=== PATIENT | male | born 1955 | race Hispanic/Latino ===

== ENCOUNTER 2020-02-22 18:27 | Inpatient (IN) | payer MEDICARE ==
[~2020-02-22] VITALS: Ht 170.2 cm; Wt 92.1 kg
[~2020-02-22 18:27] MED LIST: AMLODIPINE BESY10 MG PO; GABAPENTIN400 MG PO; LANTUS 3ML100 UNITS/ SC; LANTUS 3ML100 UNITS/ SQ; LOSARTAN POTAS100 MG PO; METOPROLOL SUCC50 MG PO
[2020-02-22] MEDS ORDERED: HYDRALAZINE HCL 20 MG/ML VIAL IV STA ×2 (19:51→21:12)
[2020-02-22] MEDS ORDERED: ASPIRIN 81 MG CHEW TAB PO ONE (20:15)
[2020-02-22] MEDS ORDERED: HYDRALAZINE HCL 20 MG/ML VIAL ONE ×2 (20:28→22:06)
[2020-02-22] MEDS ORDERED: ASPIRIN 81 MG CHEW TAB ONE (20:28)
[2020-02-22 22:20] VITALS: BP 150/77
[2020-02-23] VITALS (10 sets, daily range): BP systolic 152–187; BP diastolic 85–105
[2020-02-23] MEDS: HYDRALAZINE HCL 20 MG/ML VIAL IV PRN ×2 (05:49→23:44)
[2020-02-23] MEDS: LOSARTAN POTASSIUM 100 MG TAB PO SCH (09:09)
[2020-02-23] MEDS: GABAPENTIN 400 MG CAP PO SCH ×3 (09:10→22:39)
[2020-02-23] MEDS: AMLODIPINE BESYLATE 10 MG TAB PO SCH (09:10)
[2020-02-23] MEDS: METOPROLOL SUCCINATE 50 MG TAB XL PO SCH (09:10)
[2020-02-23 12:38] LABS: BASOPHILS % 0.3 % (0.0-1.0); EOSINOPHILS # (AUTO) 0.1 (0.0-0.4); EOSINOPHILS % 0.9 % (0.0-6.0); HEMATOCRIT 27.9 % (38.2-49.6); LYMPHOCYTES % 10.8 % (18.0-39.1); MEAN CORPUSCULAR HEMOGLOBIN 26.5 pg (28-32); MEAN CORPUSCULAR HGB CONC 35.8 g/dL (31-35); MEAN CORPUSCULAR VOLUME 73.8 fL (81-99); MONOCYTES % 11.2 % (4.4-11.3); NEUTROPHILS # (AUTO) 6.8 (2.1-6.9); NEUTROPHILS % 76.5 % (38.7-80.0); PLATELET COUNT 315 x10e3/uL (140-360); RED BLOOD COUNT 3.78 x10e6/uL (4.3-5.7); RED CELL DISTRIBUTION WIDTH 13.7 % (11.7-14.4)
[2020-02-23 13:00] LABS: ALBUMIN 3.8 g/dL (3.5-5.0); ALBUMIN/GLOBULIN RATIO 1.2 (0.8-2.0); ANION GAP 17.4 mmol/L (8-16); CALCIUM 8.7 mg/dL (8.4-10.2); CREATININE, SERUM 2.42 mg/dL (0.72-1.25); POTASSIUM 3.4 mmol/L (3.5-5.1)
[2020-02-23 13:06] LABS: CREATINE KINASE MB 11.2 ng/mL (0-5.0)
[2020-02-23 18:05] LABS: CREATINE KINASE MB 11.7 ng/mL (0-5.0)
[2020-02-23] MEDS ORDERED: SODIUM CHLORIDE 3% 100 ML IV ONE (18:15)
[2020-02-23] MEDS ORDERED: POTASSIUM CHLORIDE 20 MEQ TAB CR PO ONE ×2 (18:15→22:34)
[2020-02-23 23:14] LABS: POTASSIUM,URINE 22.9 mmol/L
[2020-02-24] VITALS (15 sets, daily range): BP systolic 93–174; BP diastolic 45–85
[2020-02-24 01:50] LABS: CREATINE KINASE MB 10.7 ng/mL (0-5.0)
[2020-02-24] MEDS ORDERED: SODIUM CHLORIDE 0.9% 1000ML 1,000 ML ONE (03:24)
[2020-02-24 03:27] LABS: ANION GAP 15.6 mmol/L (8-16); CREATININE, SERUM 2.48 mg/dL (0.72-1.25); POTASSIUM 3.6 mmol/L (3.5-5.1)
[2020-02-24 05:51] LABS: BASOPHILS % 0.3 % (0.0-1.0); EOSINOPHILS # (AUTO) 0.1 (0.0-0.4); HEMOGLOBIN 8.9 g/dL (14.0-18.0); LYMPHOCYTES # (AUTO) 1.1 (1.0-3.2); MEAN CORPUSCULAR HEMOGLOBIN 27.6 pg (28-32); MEAN CORPUSCULAR HGB CONC 37.1 g/dL (31-35); MEAN CORPUSCULAR VOLUME 74.5 fL (81-99); MONOCYTES # (AUTO) 1.2 (0.2-0.8); MONOCYTES % 9.6 % (4.4-11.3); NEUTROPHILS # (AUTO) 9.7 (2.1-6.9); NEUTROPHILS % 79.7 % (38.7-80.0); PLATELET COUNT 269 x10e3/uL (140-360); RED BLOOD COUNT 3.22 x10e6/uL (4.3-5.7); RED CELL DISTRIBUTION WIDTH 13.6 % (11.7-14.4)
[2020-02-24 06:14] LABS: ALBUMIN 3.2 g/dL (3.5-5.0); ALBUMIN/GLOBULIN RATIO 1.2 (0.8-2.0); ANION GAP 14.5 mmol/L (8-16); CREATININE, SERUM 2.41 mg/dL (0.72-1.25); MAGNESIUM 1.7 MG/DL (1.3-2.1); POTASSIUM 3.5 mmol/L (3.5-5.1)
[2020-02-24 07:02] LABS: CREATINE KINASE MB 8.6 ng/mL (0-5.0)
[2020-02-24] MEDS: GABAPENTIN 400 MG CAP PO SCH (08:40)
[2020-02-24] MEDS: ASPIRIN 81 MG CHEW TAB PO SCH (08:40)
[2020-02-24] MEDS: METOPROLOL SUCCINATE 50 MG TAB XL PO SCH (08:41)
[2020-02-24] MEDS ORDERED: SODIUM CHLORIDE 1 GM TAB PO SCH (09:00)
[2020-02-24] MEDS: LOSARTAN POTASSIUM 100 MG TAB PO SCH (10:16)
[2020-02-24] MEDS: AMLODIPINE BESYLATE 10 MG TAB PO SCH (11:46)
[2020-02-24] MEDS ORDERED: POTASSIUM CHLORIDE 20 MEQ TAB CR PO ONE (12:30)
[2020-02-24 12:50] LABS: FREE THYROXINE INDEX 2.5431 (1.4-3.8); THYROID STIMULATING HORMONE 0.205 uIU/mL (0.350-4.940)
[2020-02-24] MEDS: SODIUM CHLORIDE 0.9% 1000ML 1,000 ML IV SCH ×2 (14:45→20:47)
[2020-02-24] MEDS: SODIUM CHLORIDE 1 GM TAB PO SCH ×2 (14:46→20:47)
[2020-02-24 16:32] LABS: ANION GAP 14.8 mmol/L (8-16); CREATININE, SERUM 2.46 mg/dL (0.72-1.25); POTASSIUM 3.8 mmol/L (3.5-5.1)
[2020-02-24] MEDS: HYDRALAZINE HCL 20 MG/ML VIAL IV PRN (18:21)
[2020-02-25] VITALS (8 sets, daily range): BP systolic 119–197; BP diastolic 66–89
[2020-02-25 06:14] LABS: BASOPHILS % 0.6 % (0.0-1.0); EOSINOPHILS # (AUTO) 0.2 (0.0-0.4); EOSINOPHILS % 2.2 % (0.0-6.0); HEMATOCRIT 24.4 % (38.2-49.6); HEMOGLOBIN 8.6 g/dL (14.0-18.0); LYMPHOCYTES # (AUTO) 1.1 (1.0-3.2); LYMPHOCYTES % 15.5 % (18.0-39.1); MEAN CORPUSCULAR HEMOGLOBIN 27.2 pg (28-32); MEAN CORPUSCULAR HGB CONC 35.2 g/dL (31-35); MEAN CORPUSCULAR VOLUME 77.2 fL (81-99); MONOCYTES # (AUTO) 0.9 (0.2-0.8); NEUTROPHILS # (AUTO) 4.7 (2.1-6.9); NEUTROPHILS % 68.4 % (38.7-80.0); PLATELET COUNT 274 x10e3/uL (140-360); RED BLOOD COUNT 3.16 x10e6/uL (4.3-5.7); RED CELL DISTRIBUTION WIDTH 13.9 % (11.7-14.4)
[2020-02-25 07:06] LABS: ALBUMIN/GLOBULIN RATIO 1.1 (0.8-2.0); ANION GAP 9.8 mmol/L (8-16); CALCIUM 7.8 mg/dL (8.4-10.2); CREATININE, SERUM 2.44 mg/dL (0.72-1.25); MAGNESIUM 1.7 MG/DL (1.3-2.1); POTASSIUM 3.8 mmol/L (3.5-5.1)
[2020-02-25] MEDS ORDERED: DEXTROSE 50% SYRINGE 50 ML IV PRN (07:45)
[2020-02-25] MEDS: SODIUM CHLORIDE 1 GM TAB PO SCH ×3 (08:08→20:34)
[2020-02-25] MEDS: AMLODIPINE BESYLATE 10 MG TAB PO SCH (08:08)
[2020-02-25] MEDS: ASPIRIN 81 MG CHEW TAB PO SCH (08:08)
[2020-02-25] MEDS: METOPROLOL SUCCINATE 50 MG TAB XL PO SCH (08:09)
[2020-02-25] MEDS: SODIUM CHLORIDE 0.9% 1000ML 1,000 ML IV SCH ×2 (10:45→18:15)
[2020-02-25] MEDS: INSULIN REGULAR, HUMAN 100 UNIT/1 ML 3ML VIAL SQ SCH ×3 (12:13→21:00)
[2020-02-25] MEDS: TRAMADOL HCL 50 MG TAB PO PRN (16:55)
[2020-02-25] MEDS: INSULIN GLARGINE 100 UNITS/ML VIAL SQ SCH (21:00)
[2020-02-25] MEDS: HYDRALAZINE HCL 20 MG/ML VIAL IV PRN (21:06)
[2020-02-26] VITALS (8 sets, daily range): BP systolic 166–185; BP diastolic 80–113
[2020-02-26] MEDS: HYDRALAZINE HCL 20 MG/ML VIAL IV PRN (02:00)
[2020-02-26] MEDS: SODIUM CHLORIDE 0.9% 1000ML 1,000 ML IV SCH (04:15)
[2020-02-26 06:17] LABS: BASOPHILS # (AUTO) 0.1 (0.0-0.1); BASOPHILS % 0.8 % (0.0-1.0); EOSINOPHILS # (AUTO) 0.2 (0.0-0.4); EOSINOPHILS % 2.1 % (0.0-6.0); HEMATOCRIT 24.1 % (38.2-49.6); HEMOGLOBIN 8.4 g/dL (14.0-18.0); LYMPHOCYTES % 10.9 % (18.0-39.1); MEAN CORPUSCULAR HEMOGLOBIN 26.8 pg (28-32); MEAN CORPUSCULAR HGB CONC 34.9 g/dL (31-35); MONOCYTES % 10.5 % (4.4-11.3); NEUTROPHILS # (AUTO) 6.9 (2.1-6.9); NEUTROPHILS % 75.3 % (38.7-80.0); PLATELET COUNT 285 x10e3/uL (140-360); RED BLOOD COUNT 3.13 x10e6/uL (4.3-5.7); RED CELL DISTRIBUTION WIDTH 14.4 % (11.7-14.4)
[2020-02-26 06:42] LABS: ALBUMIN 3.3 g/dL (3.5-5.0); ALBUMIN/GLOBULIN RATIO 1.2 (0.8-2.0); ANION GAP 13.7 mmol/L (8-16); CALCIUM 7.9 mg/dL (8.4-10.2); CREATININE, SERUM 2.14 mg/dL (0.72-1.25); MAGNESIUM 1.6 MG/DL (1.3-2.1); POTASSIUM 3.7 mmol/L (3.5-5.1)
[2020-02-26] MEDS: INSULIN REGULAR, HUMAN 100 UNIT/1 ML 3ML VIAL SQ SCH ×4 (07:30→20:36)
[2020-02-26] MEDS: ASPIRIN 81 MG CHEW TAB PO SCH (08:24)
[2020-02-26] MEDS: METOPROLOL SUCCINATE 50 MG TAB XL PO SCH (08:25)
[2020-02-26] MEDS: AMLODIPINE BESYLATE 10 MG TAB PO SCH (08:25)
[2020-02-26] MEDS: SODIUM CHLORIDE 1 GM TAB PO SCH (09:36)
[2020-02-26] MEDS: NIFEDIPINE CR 30 MG TAB PO SCH ×2 (13:52→20:30)
[2020-02-26] MEDS: SODIUM BICARBONATE 650 MG TAB PO SCH ×2 (17:10→20:30)
[2020-02-26] MEDS: TRAMADOL HCL 50 MG TAB PO PRN (20:01)
[2020-02-26] MEDS: INSULIN GLARGINE 100 UNITS/ML VIAL SQ SCH (20:37)
[2020-02-27] VITALS (8 sets, daily range): BP systolic 147–160; BP diastolic 70–104
[2020-02-27] MEDS: TRAMADOL HCL 50 MG TAB PO PRN ×2 (04:25→21:03)
[2020-02-27 05:45] LABS: ALBUMIN 3.2 g/dL (3.5-5.0); ALBUMIN/GLOBULIN RATIO 1.1 (0.8-2.0); ANION GAP 13.6 mmol/L (8-16); CALCIUM 8.1 mg/dL (8.4-10.2); CREATININE, SERUM 2.13 mg/dL (0.72-1.25); POTASSIUM 3.6 mmol/L (3.5-5.1)
[2020-02-27] MEDS: INSULIN REGULAR, HUMAN 100 UNIT/1 ML 3ML VIAL SQ SCH ×4 (07:30→21:13)
[2020-02-27] MEDS: NIFEDIPINE CR 30 MG TAB PO SCH ×2 (10:14→21:04)
[2020-02-27] MEDS: SODIUM BICARBONATE 650 MG TAB PO SCH ×3 (10:14→21:04)
[2020-02-27] MEDS: ASPIRIN 81 MG CHEW TAB PO SCH (10:14)
[2020-02-27] MEDS: METOPROLOL SUCCINATE 50 MG TAB XL PO SCH (10:14)
[2020-02-27] MEDS: INSULIN GLARGINE 100 UNITS/ML VIAL SQ SCH (21:12)
[2020-02-28] VITALS (7 sets, daily range): BP systolic 140–166; BP diastolic 67–81
[2020-02-28 06:02] LABS: ANION GAP 11.7 mmol/L (8-16); CALCIUM 7.9 mg/dL (8.4-10.2); CREATININE, SERUM 2.04 mg/dL (0.72-1.25); PHOSPHORUS 3.5 MG/DL (2.3-4.7); POTASSIUM 3.7 mmol/L (3.5-5.1)
[2020-02-28 06:11] LABS: CLARITY,URINE CLEAR (CLEAR); COLOR,URINE YELLOW (YELLOW); LEUKOCYTE ESTERASE ,URINE NEGATIVE (NEGATIVE); NITRITE,URINE NEGATIVE (NEGATIVE); PROTEIN,URINE DIPSTICK >=300 (NEGATIVE)
[2020-02-28 06:12] LABS: KETONES,URINE NEGATIVE (NEGATIVE); URINE UROBILINOGEN 0.2 mg/dL (0.2 - 1)
[2020-02-28 07:05] LABS: BACTERIA,URINE FEW /HPF; EPITHELIAL CELLS,URINE RARE /LPF; WBC,URINE (MAN) 0-5 /HPF (0-5)
[2020-02-28] MEDS: SODIUM BICARBONATE 650 MG TAB PO SCH ×3 (07:51→21:26)
[2020-02-28] MEDS: SODIUM CHLORIDE 1 GM TAB PO SCH ×3 (07:51→21:26)
[2020-02-28] MEDS: INSULIN REGULAR, HUMAN 100 UNIT/1 ML 3ML VIAL SQ SCH ×4 (08:30→21:33)
[2020-02-28] MEDS: ASPIRIN 81 MG CHEW TAB PO SCH (08:41)
[2020-02-28] MEDS: FUROSEMIDE 20 MG TAB PO SCH (08:41)
[2020-02-28] MEDS: NIFEDIPINE CR 30 MG TAB PO SCH ×2 (08:41→21:23)
[2020-02-28] MEDS: METOPROLOL SUCCINATE 50 MG TAB XL PO SCH (08:42)
[2020-02-28 08:44] LABS: CREATININE,URINE RANDOM 57.44 mg/dL (63-166)
[2020-02-28] MEDS: DOCUSATE SODIUM 100 MG CAP PO SCH ×2 (09:59→16:47)
[2020-02-28] MEDS: TRAMADOL HCL 50 MG TAB PO PRN (15:01)
[2020-02-28] MEDS: INSULIN GLARGINE 100 UNITS/ML VIAL SQ SCH (21:34)
[2020-02-29] VITALS (10 sets, daily range): BP systolic 123–178; BP diastolic 75–87
[2020-02-29 06:23] LABS: BASOPHILS % 0.3 % (0.0-1.0); EOSINOPHILS % 9.2 % (0.0-6.0); HEMATOCRIT 26.9 % (38.2-49.6); HEMOGLOBIN 9.6 g/dL (14.0-18.0); LYMPHOCYTES # (AUTO) 1.1 (1.0-3.2); LYMPHOCYTES % 10.7 % (18.0-39.1); MEAN CORPUSCULAR HEMOGLOBIN 27.4 pg (28-32); MEAN CORPUSCULAR HGB CONC 35.7 g/dL (31-35); MEAN CORPUSCULAR VOLUME 76.9 fL (81-99); MONOCYTES # (AUTO) 1.1 (0.2-0.8); MONOCYTES % 10.7 % (4.4-11.3); NEUTROPHILS % 68.4 % (38.7-80.0); PLATELET COUNT 316 x10e3/uL (140-360); RED CELL DISTRIBUTION WIDTH 13.6 % (11.7-14.4)
[2020-02-29 07:00] LABS: ANION GAP 11.5 mmol/L (8-16); CALCIUM 7.8 mg/dL (8.4-10.2); CREATININE, SERUM 2.01 mg/dL (0.72-1.25); POTASSIUM 3.5 mmol/L (3.5-5.1)
[2020-02-29] MEDS: INSULIN REGULAR, HUMAN 100 UNIT/1 ML 3ML VIAL SQ SCH ×4 (07:30→20:59)
[2020-02-29] MEDS ORDERED: POTASSIUM CHLORIDE 20 MEQ TAB CR PO STA (08:41)
[2020-02-29] MEDS: DOCUSATE SODIUM 100 MG CAP PO SCH ×2 (09:10→16:30)
[2020-02-29] MEDS: NIFEDIPINE CR 30 MG TAB PO SCH ×2 (09:10→21:07)
[2020-02-29] MEDS: FUROSEMIDE 20 MG TAB PO SCH (09:10)
[2020-02-29] MEDS: ASPIRIN 81 MG CHEW TAB PO SCH (09:10)
[2020-02-29] MEDS: METOPROLOL SUCCINATE 50 MG TAB XL PO SCH (09:11)
[2020-02-29] MEDS: SODIUM BICARBONATE 650 MG TAB PO SCH ×3 (09:11→21:07)
[2020-02-29] MEDS: SODIUM CHLORIDE 1 GM TAB PO SCH ×3 (09:11→21:07)
[2020-02-29] MEDS: HYDRALAZINE HCL 25 MG TAB PO SCH ×2 (12:48→21:06)
[2020-02-29] MEDS: TRAMADOL HCL 50 MG TAB PO PRN (16:31)
[2020-02-29] MEDS: INSULIN GLARGINE 100 UNITS/ML VIAL SQ SCH (20:59)
[2020-03-01] VITALS (7 sets, daily range): BP systolic 139–186; BP diastolic 67–84
[2020-03-01 06:45] LABS: ALBUMIN 2.9 g/dL (3.5-5.0); ALBUMIN/GLOBULIN RATIO 1.1 (0.8-2.0); ANION GAP 11.7 mmol/L (8-16); CALCIUM 7.8 mg/dL (8.4-10.2); CREATININE, SERUM 2.13 mg/dL (0.72-1.25); MAGNESIUM 1.7 MG/DL (1.3-2.1); PHOSPHORUS 3.4 MG/DL (2.3-4.7); POTASSIUM 3.7 mmol/L (3.5-5.1)
[2020-03-01] MEDS: INSULIN REGULAR, HUMAN 100 UNIT/1 ML 3ML VIAL SQ SCH ×4 (07:30→21:00)
[2020-03-01] MEDS: HYDRALAZINE HCL 25 MG TAB PO SCH ×3 (10:09→21:18)
[2020-03-01] MEDS: ASPIRIN 81 MG CHEW TAB PO SCH (10:10)
[2020-03-01] MEDS: NIFEDIPINE CR 30 MG TAB PO SCH ×2 (10:10→21:19)
[2020-03-01] MEDS: DOCUSATE SODIUM 100 MG CAP PO SCH ×2 (10:10→18:05)
[2020-03-01] MEDS: FUROSEMIDE 20 MG TAB PO SCH (10:10)
[2020-03-01] MEDS: SODIUM CHLORIDE 1 GM TAB PO SCH ×3 (10:11→21:19)
[2020-03-01] MEDS: SODIUM BICARBONATE 650 MG TAB PO SCH ×3 (10:11→21:19)
[2020-03-01] MEDS: METOPROLOL SUCCINATE 50 MG TAB XL PO SCH (10:12)
[2020-03-01] MEDS: INSULIN GLARGINE 100 UNITS/ML VIAL SQ SCH (21:00)
[2020-03-02] VITALS (8 sets, daily range): BP systolic 147–185; BP diastolic 70–86
[2020-03-02] MEDS: TRAMADOL HCL 50 MG TAB PO PRN ×2 (00:02→21:47)
[2020-03-02 06:22] LABS: BASOPHILS % 0.1 % (0.0-1.0); EOSINOPHILS # (AUTO) 0.9 (0.0-0.4); EOSINOPHILS % 12.3 % (0.0-6.0); HEMATOCRIT 24.2 % (38.2-49.6); HEMOGLOBIN 8.3 g/dL (14.0-18.0); LYMPHOCYTES # (AUTO) 0.7 (1.0-3.2); LYMPHOCYTES % 9.7 % (18.0-39.1); MEAN CORPUSCULAR HEMOGLOBIN 27.1 pg (28-32); MEAN CORPUSCULAR HGB CONC 34.3 g/dL (31-35); MEAN CORPUSCULAR VOLUME 79.1 fL (81-99); MONOCYTES % 13.2 % (4.4-11.3); NEUTROPHILS # (AUTO) 4.9 (2.1-6.9); NEUTROPHILS % 63.8 % (38.7-80.0); PLATELET COUNT 253 x10e3/uL (140-360); RED BLOOD COUNT 3.06 x10e6/uL (4.3-5.7); RED CELL DISTRIBUTION WIDTH 14.2 % (11.7-14.4)
[2020-03-02 06:26] LABS: ANION GAP 11.5 mmol/L (8-16); CALCIUM 7.6 mg/dL (8.4-10.2); CREATININE, SERUM 2.15 mg/dL (0.72-1.25); POTASSIUM 3.5 mmol/L (3.5-5.1)
[2020-03-02] MEDS: INSULIN REGULAR, HUMAN 100 UNIT/1 ML 3ML VIAL SQ SCH ×4 (07:30→21:00)
[2020-03-02] MEDS: ASPIRIN 81 MG CHEW TAB PO SCH (08:56)
[2020-03-02] MEDS: DOCUSATE SODIUM 100 MG CAP PO SCH ×2 (08:57→15:13)
[2020-03-02] MEDS: HYDRALAZINE HCL 100 MG TABLET PO SCH ×3 (08:57→21:39)
[2020-03-02] MEDS: FUROSEMIDE 20 MG TAB PO SCH (08:57)
[2020-03-02] MEDS: SODIUM BICARBONATE 650 MG TAB PO SCH ×3 (08:58→21:38)
[2020-03-02] MEDS: SODIUM CHLORIDE 1 GM TAB PO SCH ×3 (08:58→21:38)
[2020-03-02] MEDS: METOPROLOL SUCCINATE 50 MG TAB XL PO SCH (08:58)
[2020-03-02] MEDS: NIFEDIPINE CR 30 MG TAB PO SCH ×2 (08:58→21:39)
[2020-03-02] MEDS: INSULIN GLARGINE 100 UNITS/ML VIAL SQ SCH (21:00)
[2020-03-03] VITALS (9 sets, daily range): BP systolic 144–188; BP diastolic 58–86
[2020-03-03 06:13] LABS: BASOPHILS % 0.3 % (0.0-1.0); EOSINOPHILS # (AUTO) 1.1 (0.0-0.4); EOSINOPHILS % 13.9 % (0.0-6.0); HEMATOCRIT 24.1 % (38.2-49.6); HEMOGLOBIN 8.3 g/dL (14.0-18.0); LYMPHOCYTES # (AUTO) 0.9 (1.0-3.2); LYMPHOCYTES % 11.6 % (18.0-39.1); MEAN CORPUSCULAR HEMOGLOBIN 27.3 pg (28-32); MEAN CORPUSCULAR HGB CONC 34.4 g/dL (31-35); MEAN CORPUSCULAR VOLUME 79.3 fL (81-99); MONOCYTES % 12.3 % (4.4-11.3); NEUTROPHILS # (AUTO) 4.8 (2.1-6.9); NEUTROPHILS % 61.1 % (38.7-80.0); PLATELET COUNT 231 x10e3/uL (140-360); RED BLOOD COUNT 3.04 x10e6/uL (4.3-5.7); RED CELL DISTRIBUTION WIDTH 14.3 % (11.7-14.4)
[2020-03-03] MEDS: TRAMADOL HCL 50 MG TAB PO PRN ×2 (06:22→13:39)
[2020-03-03 06:32] LABS: ALBUMIN/GLOBULIN RATIO 1.2 (0.8-2.0); ANION GAP 11.5 mmol/L (8-16); CALCIUM 7.6 mg/dL (8.4-10.2); CREATININE, SERUM 2.25 mg/dL (0.72-1.25); MAGNESIUM 1.6 MG/DL (1.3-2.1); POTASSIUM 3.5 mmol/L (3.5-5.1)
[2020-03-03] MEDS: INSULIN REGULAR, HUMAN 100 UNIT/1 ML 3ML VIAL SQ SCH ×4 (08:00→21:29)
[2020-03-03] MEDS: METOPROLOL SUCCINATE 50 MG TAB XL PO SCH (09:20)
[2020-03-03] MEDS: ASPIRIN 81 MG CHEW TAB PO SCH (09:20)
[2020-03-03] MEDS: FUROSEMIDE 20 MG TAB PO SCH (09:20)
[2020-03-03] MEDS: SODIUM CHLORIDE 1 GM TAB PO SCH ×3 (09:20→21:07)
[2020-03-03] MEDS: DOCUSATE SODIUM 100 MG CAP PO SCH ×2 (09:20→16:43)
[2020-03-03] MEDS: SODIUM BICARBONATE 650 MG TAB PO SCH ×3 (09:20→21:07)
[2020-03-03] MEDS: HYDRALAZINE HCL 100 MG TABLET PO SCH ×3 (09:20→21:09)
[2020-03-03] MEDS: NIFEDIPINE CR 30 MG TAB PO SCH ×2 (09:20→21:08)
[2020-03-03] MEDS ORDERED: POTASSIUM CHLORIDE 20 MEQ TAB CR PO NR (13:32)
[2020-03-03] MEDS ORDERED: LACTULOSE SYRUP 20 GM/30 ML UDC PO PRN (15:45)
[2020-03-03] MEDS: HYDRALAZINE HCL 20 MG/ML VIAL IV PRN (16:43)
[2020-03-03] MEDS: INSULIN GLARGINE 100 UNITS/ML VIAL SQ SCH (21:29)
[2020-03-04] VITALS (10 sets, daily range): BP systolic 170–194; BP diastolic 73–83
[2020-03-04 06:57] LABS: BASOPHILS % 0.3 % (0.0-1.0); EOSINOPHILS # (AUTO) 1.3 (0.0-0.4); EOSINOPHILS % 14.6 % (0.0-6.0); HEMATOCRIT 24.9 % (38.2-49.6); HEMOGLOBIN 8.4 g/dL (14.0-18.0); LYMPHOCYTES # (AUTO) 0.8 (1.0-3.2); MEAN CORPUSCULAR HEMOGLOBIN 26.8 pg (28-32); MEAN CORPUSCULAR HGB CONC 33.7 g/dL (31-35); MEAN CORPUSCULAR VOLUME 79.6 fL (81-99); NEUTROPHILS # (AUTO) 5.5 (2.1-6.9); NEUTROPHILS % 63.3 % (38.7-80.0); PLATELET COUNT 240 x10e3/uL (140-360); RED BLOOD COUNT 3.13 x10e6/uL (4.3-5.7); RED CELL DISTRIBUTION WIDTH 14.3 % (11.7-14.4)
[2020-03-04 07:36] LABS: ALBUMIN 3.1 g/dL (3.5-5.0); ALBUMIN/GLOBULIN RATIO 1.1 (0.8-2.0); ANION GAP 12.1 mmol/L (8-16); CALCIUM 7.9 mg/dL (8.4-10.2); CREATININE, SERUM 2.4 mg/dL (0.72-1.25); MAGNESIUM 1.6 MG/DL (1.3-2.1); POTASSIUM 4.1 mmol/L (3.5-5.1)
[2020-03-04] MEDS: INSULIN REGULAR, HUMAN 100 UNIT/1 ML 3ML VIAL SQ SCH ×4 (09:00→20:45)
[2020-03-04] MEDS: TRAMADOL HCL 50 MG TAB PO PRN ×2 (09:17→20:46)
[2020-03-04] MEDS: DOCUSATE SODIUM 100 MG CAP PO SCH ×2 (09:18→16:12)
[2020-03-04] MEDS: ASPIRIN 81 MG CHEW TAB PO SCH (09:18)
[2020-03-04] MEDS: NIFEDIPINE CR 30 MG TAB PO SCH ×2 (09:18→20:45)
[2020-03-04] MEDS: FUROSEMIDE 20 MG TAB PO SCH (09:19)
[2020-03-04] MEDS: HYDRALAZINE HCL 100 MG TABLET PO SCH ×3 (09:19→20:45)
[2020-03-04] MEDS: SODIUM CHLORIDE 1 GM TAB PO SCH ×3 (09:20→20:45)
[2020-03-04] MEDS: SODIUM BICARBONATE 650 MG TAB PO SCH ×3 (09:20→20:45)
[2020-03-04] MEDS: METOPROLOL SUCCINATE 50 MG TAB XL PO SCH (09:21)
[2020-03-04] MEDS: HYDRALAZINE HCL 20 MG/ML VIAL IV PRN (13:26)
[2020-03-04] MEDS: INSULIN GLARGINE 100 UNITS/ML VIAL SQ SCH (20:45)
[2020-03-04] MEDS ORDERED: AMLODIPINE BESYLATE 5 MG TAB PO SCH (21:00)
[2020-03-05] VITALS: BP 172/81
[2020-03-05] MEDS: HYDRALAZINE HCL 20 MG/ML VIAL IV PRN (02:01)
[2020-03-05 04:00] VITALS: BP 140/73
[2020-03-05 06:19] LABS: BASOPHILS % 0.3 % (0.0-1.0); EOSINOPHILS # (AUTO) 1.4 (0.0-0.4); EOSINOPHILS % 14.9 % (0.0-6.0); HEMATOCRIT 24.5 % (38.2-49.6); HEMOGLOBIN 8.3 g/dL (14.0-18.0); LYMPHOCYTES % 10.5 % (18.0-39.1); MEAN CORPUSCULAR HEMOGLOBIN 26.8 pg (28-32); MEAN CORPUSCULAR HGB CONC 33.9 g/dL (31-35); MONOCYTES % 10.2 % (4.4-11.3); NEUTROPHILS # (AUTO) 5.9 (2.1-6.9); NEUTROPHILS % 63.2 % (38.7-80.0); PLATELET COUNT 211 x10e3/uL (140-360); RED CELL DISTRIBUTION WIDTH 14.3 % (11.7-14.4)
[2020-03-05 06:49] LABS: ALBUMIN 3.1 g/dL (3.5-5.0); ALBUMIN/GLOBULIN RATIO 1.2 (0.8-2.0); ANION GAP 12.5 mmol/L (8-16); CALCIUM 7.6 mg/dL (8.4-10.2); CREATININE, SERUM 2.49 mg/dL (0.72-1.25); POTASSIUM 3.5 mmol/L (3.5-5.1)
[2020-03-05] MEDS: INSULIN REGULAR, HUMAN 100 UNIT/1 ML 3ML VIAL SQ SCH ×2 (07:30→12:30)
[2020-03-05 07:53] VITALS: BP 161/79
[2020-03-05 08:51] VITALS: BP 161/79
[2020-03-05] MEDS ORDERED: NIFEDIPINE CR 30 MG TAB PO SCH ×2 (09:00)
[2020-03-05] MEDS: ASPIRIN 81 MG CHEW TAB PO SCH (10:17)
[2020-03-05] MEDS: FUROSEMIDE 20 MG TAB PO SCH (10:17)
[2020-03-05] MEDS: SODIUM BICARBONATE 650 MG TAB PO SCH ×2 (10:17→16:15)
[2020-03-05] MEDS: HYDRALAZINE HCL 100 MG TABLET PO SCH ×2 (10:17→16:24)
[2020-03-05] MEDS: SODIUM CHLORIDE 1 GM TAB PO SCH ×2 (10:17→16:15)
[2020-03-05] MEDS: METOPROLOL SUCCINATE 50 MG TAB XL PO SCH (10:17)
[2020-03-05] MEDS: DOCUSATE SODIUM 100 MG CAP PO SCH (10:17)
[2020-03-05] MEDS ORDERED: DOXAZOSIN MESYLATE 2 MG TAB PO SCH (11:30)
[2020-03-05 14:10] VITALS: BP 155/73
[2020-03-05 15:36] VITALS: BP 154/72
== END 2020-03-05 16:22 | disposition home or self-care (01) | DRG 643 ==
LOC: FSED 18:29 → ERHOLD 20:03 → MED/SURG3 22:20 → OBSVTOIN 02-23 15:22 → ICU 02-23 21:00 → MED/SURG3 02-24 12:33
PROVIDERS: ADMIT Internal Medicine; ATTEND Internal Medicine
DX: E22.2 Syndrome of inappropriate secretion of antidiuretic hormone (principal); G93.41 Metabolic encephalopathy; I21.A1 Myocardial infarction type 2; N17.0 Acute kidney failure with tubular necrosis; I16.0 Hypertensive urgency; I12.9 Hypertensive chronic kidney disease with stage 1 through stage 4 chronic kidney disease, or unspecified chronic kidney disease; N18.30 Chronic kidney disease, stage 3 unspecified; E11.22 Type 2 diabetes mellitus with diabetic chronic kidney disease; D64.9 Anemia, unspecified; Z20.822 Contact with and (suspected) exposure to COVID-19; Z89.412 Acquired absence of left great toe; E66.9 Obesity, unspecified; Z68.31 Body mass index [BMI] 31.0-31.9, adult; F03.90 Unspecified dementia, unspecified severity, without behavioral disturbance, psychotic disturbance, mood disturbance, and anxiety; E11.649 Type 2 diabetes mellitus with hypoglycemia without coma; Z79.899 Other long term (current) drug therapy
CPT/HCPCS: 36415; 70450; 70544; 70551; 71046; 72125; 76770; 80048; 80053; 81001; 81003; 82140; 82533; 82550; 82553; 82570; 82948; 83735; 83930; 83935; 83970; 84100; 84133; 84156; 84165; 84295; 84300; 84436; 84443; 84479; 84484; 84550; 85025; 93005; 93306; 93880; 95812; 96372; 99284; G0378; J0360; J1815; J1817; J7030; U0002